=== PATIENT | male | born 1990 | race Two or more races ===

== ENCOUNTER 2020-01-16 23:03 | Emergency (ER) | payer SELFPAY ==
[~2020-01-16] VITALS: Ht 177.8 cm; Wt 99.8 kg
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
[2020-01-16 23:13] VITALS: BP 168/90
[2020-01-16 23:15] VITALS: BP 168/90
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
== END 2020-01-16 23:15 | disposition short-term general hospital (02) ==
LOC: EMR 23:09
DX: S21.231A Puncture wound without foreign body of right back wall of thorax without penetration into thoracic cavity, initial encounter (principal); W34.00XA Accidental discharge from unspecified firearms or gun, initial encounter
CPT/HCPCS: 71046; 99291